=== PATIENT | female | born 1985 | race Caucasian/White ===

== ENCOUNTER 2016-12-17 01:52 | Emergency (ER) | payer OTHER ==
[~2016-12-17] VITALS: Ht 165.1 cm; Wt 55.0 kg
[2016-12-17 03:04] VITALS: BP 121/74
== END 2016-12-17 03:21 | disposition home or self-care (01) ==
LOC: ED 02:50
DX: S06.0X0A Concussion without loss of consciousness, initial encounter (principal); F10.120 Alcohol abuse with intoxication, uncomplicated; W22.8XXA Striking against or struck by other objects, initial encounter; Y93.41 Activity, dancing; Y92.89 Other specified places as the place of occurrence of the external cause; Y99.8 Other external cause status
CPT/HCPCS: 99281

== ENCOUNTER 2018-01-24 12:30 | Outpatient (CLI) | payer OTHER | END 2018-01-24 14:36 | disposition home or self-care (01) | LOC: LDOP 12:30 | PROVIDERS: ATTEND Obstetrics & Gynecology | DX: O26.899 Other specified pregnancy related conditions, unspecified trimester (principal); R10.9 Unspecified abdominal pain; Z3A.00 Weeks of gestation of pregnancy not specified | CPT/HCPCS: 59025; 99211; G0463 ==

== ENCOUNTER 2018-02-10 21:28 | Outpatient (CLI) | payer OTHER ==
[~2018-02-10] VITALS: Ht 157.5 cm; Wt 70.5 kg
[2018-02-10 21:52] VITALS: BP 107/76
[2018-02-12] MEDS ORDERED: PREN1TAB60 PO (09:16)
[2018-02-12] MEDS ORDERED: VALA500T PO (09:17)
[2018-02-14] MEDS ORDERED: DOCU-131 PO (15:57)
[2018-02-14] MEDS ORDERED: IBUP-1222 PO (15:57)
[2018-02-14] MEDS ORDERED: OXYC-302 PO (15:57)
== END 2018-02-10 22:23 | disposition home or self-care (01) ==
LOC: LDOP 21:28
PROVIDERS: ATTEND Obstetrics & Gynecology
DX: O36.8130 Decreased fetal movements, third trimester, not applicable or unspecified (principal); Z3A.42 42 weeks gestation of pregnancy
CPT/HCPCS: 59025; 99211; G0463